=== PATIENT | female | born 1945 | race Caucasian/White ===

== ENCOUNTER 2019-08-12 16:54 | Inpatient (IN) ==
[2019-08-12 18:05] LABS: Hemoglobin 9.6 g/dL (11.5-15.4); Mean Corpuscular Volume 89.1 fL (83.0-100.0)
[2019-08-12 18:07] LABS: Basophils # 0.1 K/mcL (0.0-0.2); Basophils % 1.3 %; Eosinophils # 0.1 K/mcL (0.0-0.6); Eosinophils % 1.1 %; Hematocrit 29.3 % (35.3-44.9); Immature Granulocytes % 5.7 % (0-4); Immature Platelets 9.2 % (1.1-6.1); Lymphocytes # 0.7 K/mcL (0.6-4.6); Lymphocytes % 13.6 %; Mean Corpuscular HGB Conc 32.8 g/dL (31.6-35.5); Mean Corpuscular Hemoglobin 29.2 pg (28.0-33.3); Monocytes # 0.3 K/mcL (0.0-1.3); Monocytes % 5.3 %; Nucleated Red Blood Cells 2.8 /100 WBC (0); Red Blood Count 3.29 M/mcL (3.82-4.97); Red Cell Distribution Width 21.4 % (11.5-14.5); White Blood Count 5.4 K/mcL (4.3-11.1)
[2019-08-12 18:10] LABS: Neutrophils # 3.9 K/mcL (1.6-8.9); Platelet Count 86 K/mcL (140-400)
[2019-08-12 18:22] LABS: Calcium 7.8 mg/dL (8.6-10.3); Potassium 3.6 mEq/L (3.5-5.1)
[2019-08-12 18:28] LABS: Albumin 3.7 g/dL (3.5-5.7); Albumin/Globulin Ratio 1.5 (1.1-2.2); Bilirubin,Direct 0.3 mg/dL (0.0-0.2); Bilirubin,Indirect 1.4 mg/dL (0.0-1.0); Bilirubin,Total 1.7 mg/dL (0.3-1.0); Globulin 2.5 g/dL (2.4-3.5); Total Protein 6.2 g/dL (6.4-8.9); Troponin I 0.04 ng/mL (< 0.04)
[2019-08-12] MEDS ORDERED: *HR* Enoxaparin 60 MG/0.6 ML SYRINGE SQ ONE (18:57)
[2019-08-12 19:10] LABS: Bilirubin,Urine Small (Negative); Blood,Urine Negative (Negative); Clarity,Urine Cloudy (Clear); Color,Urine Dark Yellow (Yellow); Glucose,Urine (UA) 100 mg/dL (Normal); Ketones,Urine Negative (Negative); Leukocyte Esterase,Urine Negative (Negative); Nitrite,Urine Negative (Negative); PH,Urine 5.5 pH Units (5.0-8.0); Protein,Urine >=1000 mg/dL (Neg-Trace); Specific Gravity,Urine 1.028 (1.010-1.025); Urobilinogen,Urine Normal (Normal)
[2019-08-12 19:13] LABS: Bacteria,Urine None Seen per hpf (None-Few); Hyaline Casts,Urine Few per lpf (None-Few); RBC,Urine 0-3 per hpf (0-3); Squamous Epithelial Cell,Urine Many per lpf (None-Few); WBC,Urine 0-3 per hpf (0-3)
[2019-08-12] MEDS ORDERED: Aspirin 81 MG TAB.CHEW PO STA (19:13)
[2019-08-12] MEDS ORDERED: 0.9 % Sodium Chloride 1,000 ML IVC ONE (19:21)
[2019-08-12 19:22] LABS: Amorphous Sediment,Urine Many (Few)
[2019-08-13] MEDS ORDERED: Naloxone 0.4 MG/ML INJ IVP PRN (01:17)
[2019-08-13] MEDS ORDERED: Dextrose Gel 15 GM/37.5 ML TUBE PO PRN ×2 (06:29)
[2019-08-13] MEDS ORDERED: *HR* Dextrose 50 % in Water (Syg) 50 ML SYRINGE IVP PRN (06:29)
[2019-08-13] MEDS ORDERED: D5% in Water 1,000 ML IVC PRN (06:29)
[2019-08-13 06:45] LABS: Mean Corpuscular Hemoglobin 29.1 pg (28.0-33.3)
[2019-08-13 06:47] LABS: Hematocrit 24.9 % (35.3-44.9); Immature Platelets 9.2 % (1.1-6.1); Mean Corpuscular HGB Conc 32.1 g/dL (31.6-35.5); Mean Corpuscular Volume 90.5 fL (83.0-100.0); Red Blood Count 2.75 M/mcL (3.82-4.97); Red Cell Distribution Width 21.4 % (11.5-14.5); White Blood Count 4.2 K/mcL (4.3-11.1)
[2019-08-13 06:59] LABS: Heparin anti-factor XA UFH 0.29 IU/mL (0.30-0.70); INR 1.2; Prothrombin Time 13.7 Seconds (9.4-12.1)
[2019-08-13] MEDS ORDERED: Heparin 25,000 UNIT/250 ML D5W 25,000 UNIT/250 ML IV.SOLN IVC SCH (07:00)
[2019-08-13] MEDS ORDERED: *HR* Heparin 5,000 UNIT/ML VIAL IVP PRN ×2 (07:00)
[2019-08-13] MEDS ORDERED: *HR* Heparin 5,000 UNIT/ML VIAL IVP ONE (07:00)
[2019-08-13 07:03] LABS: Platelet Count 79 K/mcL (140-400)
[2019-08-13 07:05] LABS: Calcium 7.2 mg/dL (8.6-10.3); Potassium 3.2 mEq/L (3.5-5.1)
[2019-08-13] MEDS: Insulin LISPRO 300 UNITS/3 ML VIAL SQ SCH ×4 (08:00→21:05)
[2019-08-13 08:40] LABS: Hematocrit 24.7 % (35.3-44.9); Hemoglobin 7.7 g/dL (11.5-15.4)
[2019-08-13] MEDS ORDERED: Octreotide 50 MCG/ML INJ IVP ONE (09:09)
[2019-08-13] MEDS: Octreotide 400 MCG in 0.9 % Sodium Chloride 100 ML IVC SCH ×2 (13:08→21:04)
[2019-08-13] MEDS: cefTRIAXone 1,000 MG in Water for inj. (sterile) 10 ML IVP SCH (13:08)
[2019-08-13] MEDS: tiZANidine 4 MG TABLET PO SCH ×2 (13:09→21:05)
[2019-08-13] MEDS: Carbidopa/Levodopa 25/100 TABLET PO SCH ×2 (13:10→21:05)
[2019-08-13] MEDS: FLUoxetine 20 MG CAPSULE PO SCH ×2 (13:10→21:05)
[2019-08-13] MEDS ORDERED: 0.9 % Sodium Chloride 500 ML IVC ONE (16:07)
[2019-08-13] MEDS ORDERED: 0.9 % Sodium Chloride 500 ML IVC PRN (16:15)
[2019-08-13 16:47] LABS: Hematocrit 22.3 % (35.3-44.9)
[2019-08-13 17:07] LABS: % Iron Saturation 44 % (15-50); Iron 74 mcg/dL (50-170); Transferrin 120 mg/dL (203-362)
[2019-08-13] MEDS: Pantoprazole 40 MG VIAL IVP SCH (18:08)
[2019-08-13] MEDS ORDERED: 0.9 % Sodium Chloride 250 ML ONE (20:59)
[2019-08-13] MEDS: Mirtazapine 15 MG TABLET PO SCH (21:05)
[2019-08-14 02:02] LABS: Hematocrit 28.3 % (35.3-44.9); Hemoglobin 9.5 g/dL (11.5-15.4); Mean Corpuscular HGB Conc 33.6 g/dL (31.6-35.5); Mean Corpuscular Hemoglobin 29.4 pg (28.0-33.3); Mean Corpuscular Volume 87.6 fL (83.0-100.0); Red Blood Count 3.23 M/mcL (3.82-4.97); Red Cell Distribution Width 18.8 % (11.5-14.5); White Blood Count 5.2 K/mcL (4.3-11.1)
[2019-08-14 02:03] LABS: Basophils # 0.1 K/mcL (0.0-0.2); Basophils % 1.2 %; Eosinophils # 0.1 K/mcL (0.0-0.6); Eosinophils % 1.2 %; Immature Platelets 8.9 % (1.1-6.1); Lymphocytes # 0.7 K/mcL (0.6-4.6); Monocytes # 0.4 K/mcL (0.0-1.3); Nucleated Red Blood Cells 3.3 /100 WBC (0); Platelet Count 75 K/mcL (140-400); Segmented Neutrophils % 70.6 %
[2019-08-14 02:04] LABS: Neutrophils # 3.7 K/mcL (1.6-8.9)
[2019-08-14 02:31] LABS: Anisocytosis 1+ (Not Present); Ovalocytes 2+ (Not Present); Platelet Estimate Decreased (Normal); Tear Drop Cells 3+ (Not Present)
[2019-08-14 05:12] LABS: Basophils % 0.7 %; Eosinophils # 0.1 K/mcL (0.0-0.6); Eosinophils % 1.6 %; Hematocrit 31.1 % (35.3-44.9); Immature Granulocytes % 7.1 % (0-4); Lymphocytes # 0.6 K/mcL (0.6-4.6); Lymphocytes % 13.3 %; Mean Corpuscular HGB Conc 32.2 g/dL (31.6-35.5); Mean Corpuscular Hemoglobin 29.2 pg (28.0-33.3); Mean Corpuscular Volume 90.9 fL (83.0-100.0); Monocytes # 0.3 K/mcL (0.0-1.3); Monocytes % 7.3 %; Neutrophils # 3.1 K/mcL (1.6-8.9); Nucleated Red Blood Cells 3.2 /100 WBC (0); Platelet Count 140 K/mcL (140-400); Red Blood Count 3.42 M/mcL (3.82-4.97); Red Cell Distribution Width 19.1 % (11.5-14.5); White Blood Count 4.4 K/mcL (4.3-11.1)
[2019-08-14 05:25] LABS: INR 1.2; Prothrombin Time 14.1 Seconds (9.4-12.1)
[2019-08-14] MEDS: Octreotide 400 MCG in 0.9 % Sodium Chloride 100 ML IVC SCH ×2 (05:28→19:30)
[2019-08-14 05:43] LABS: Platelet Estimate Decreased (Normal)
[2019-08-14 05:49] LABS: Alanine Aminotransferase < 3 Units/L (7-52); Albumin/Globulin Ratio 1.4 (1.1-2.2); Alkaline Phosphatase 65 Units/L (34-104); Aspartate Amino Transferase 12 Units/L (13-39); BUN/Creatinine Ratio 14 (6-26); Bilirubin,Total 1.7 mg/dL (0.3-1.0); Blood Urea Nitrogen 20 mg/dL (8-23); Calcium 6.7 mg/dL (8.6-10.3); Carbon Dioxide 21 mEq/L (23-29); Chloride 109 mEq/L (98-107); Globulin 2.2 g/dL (2.4-3.5); Glucose 182 mg/dL (70-105); Magnesium 1.8 mg/dL (1.6-2.6); Osmolality,Calculated 299 (280-300); Potassium 3.8 mEq/L (3.5-5.1); Sodium 141 mEq/L (136-145); Total Protein 5.2 g/dL (6.4-8.9); eGFR For African Americans 42 (> 60); eGFR For Non-African Americans 35 (> 60)
[2019-08-14] MEDS: Pantoprazole 40 MG VIAL IVP SCH ×2 (06:09→17:57)
[2019-08-14] MEDS ORDERED: Calcium Chloride 1,000 MG in 0.9 % Sodium Chloride 100 ML IVPB ONE (07:26)
[2019-08-14] MEDS: 0.9 % Sodium Chloride 1,000 ML IVC SCH ×2 (08:56→22:06)
[2019-08-14] MEDS: FLUoxetine 20 MG CAPSULE PO SCH ×2 (08:56→20:08)
[2019-08-14] MEDS: tiZANidine 4 MG TABLET PO SCH ×2 (08:57→20:08)
[2019-08-14] MEDS: Carbidopa/Levodopa 25/100 TABLET PO SCH ×2 (08:57→20:08)
[2019-08-14] MEDS: cefTRIAXone 1,000 MG in Water for inj. (sterile) 10 ML IVP SCH (08:58)
[2019-08-14] MEDS: Insulin LISPRO 300 UNITS/3 ML VIAL SQ SCH ×4 (09:06→20:05)
[2019-08-14] MEDS ORDERED: Calcium Gluconate 1gm/50mL 1 GM/50 ML BAG IVPB ONE (09:28)
[2019-08-14] MEDS ORDERED: *HR* Metoprolol 5 MG/5 ML VIAL IVP PRN (11:20)
[2019-08-14 13:32] LABS: Hematocrit 30.5 % (35.3-44.9); Hemoglobin 9.8 g/dL (11.5-15.4)
[2019-08-14] MEDS: Mirtazapine 15 MG TABLET PO SCH (20:08)
[2019-08-15] MEDS ORDERED: *HR* Metoprolol 5 MG/5 ML VIAL IVP ONE (01:55)
[2019-08-15 05:20] LABS: Red Cell Distribution Width 19.5 % (11.5-14.5); White Blood Count 5.9 K/mcL (4.3-11.1)
[2019-08-15 05:22] LABS: Basophils # 0.1 K/mcL (0.0-0.2); Basophils % 1.4 %; Eosinophils # 0.1 K/mcL (0.0-0.6); Eosinophils % 1.7 %; Hematocrit 30.6 % (35.3-44.9); Hemoglobin 10.2 g/dL (11.5-15.4); Immature Granulocytes % 5.1 % (0-4); Immature Platelets 8.6 % (1.1-6.1); Lymphocytes # 0.7 K/mcL (0.6-4.6); Lymphocytes % 11.1 %; Mean Corpuscular HGB Conc 33.3 g/dL (31.6-35.5); Mean Corpuscular Hemoglobin 29.6 pg (28.0-33.3); Mean Corpuscular Volume 88.7 fL (83.0-100.0); Monocytes # 0.3 K/mcL (0.0-1.3); Monocytes % 5.6 %; Neutrophils # 4.4 K/mcL (1.6-8.9); Nucleated Red Blood Cells 1.9 /100 WBC (0); Red Blood Count 3.45 M/mcL (3.82-4.97); Segmented Neutrophils % 75.1 %
[2019-08-15 05:23] LABS: Platelet Count 71 K/mcL (140-400)
[2019-08-15 05:40] LABS: Calcium 6.6 mg/dL (8.6-10.3); Magnesium 1.7 mg/dL (1.6-2.6)
[2019-08-15 05:46] LABS: Anisocytosis 2+ (Not Present); Ovalocytes 2+ (Not Present); Platelet Estimate Decreased (Normal); Poikilocytosis 2+ (Not Present); Tear Drop Cells 2+ (Not Present)
[2019-08-15] MEDS: Pantoprazole 40 MG VIAL IVP SCH (06:20)
[2019-08-15] MEDS: Octreotide 400 MCG in 0.9 % Sodium Chloride 100 ML IVC SCH (07:40)
[2019-08-15] MEDS ORDERED: 0.9 % Sodium Chloride 500 ML IVC SCH (08:00)
[2019-08-15] MEDS ORDERED: Lidocaine -MPF 2% 2 ML VIAL ONE (08:06)
[2019-08-15] MEDS ORDERED: *HR* Propofol 200 MG/20 ML VIAL IVP ONE (08:07)
[2019-08-15] MEDS: Insulin LISPRO 300 UNITS/3 ML VIAL SQ SCH ×4 (08:48→19:59)
[2019-08-15] MEDS: cefTRIAXone 1,000 MG in Water for inj. (sterile) 10 ML IVP SCH (10:04)
[2019-08-15] MEDS: tiZANidine 4 MG TABLET PO SCH ×2 (10:04→20:10)
[2019-08-15] MEDS: Carbidopa/Levodopa 25/100 TABLET PO SCH ×2 (10:04→20:09)
[2019-08-15] MEDS: FLUoxetine 20 MG CAPSULE PO SCH ×2 (10:05→20:09)
[2019-08-15] MEDS: Aspirin Enteric Coated 81 MG Tablet PO SCH (13:44)
[2019-08-15] MEDS: Mirtazapine 15 MG TABLET PO SCH (20:10)
[2019-08-16 07:50] LABS: Mean Corpuscular Volume 90.3 fL (83.0-100.0)
[2019-08-16 07:52] LABS: Hematocrit 33.6 % (35.3-44.9); Hemoglobin 10.8 g/dL (11.5-15.4); Immature Platelets 9.9 % (1.1-6.1); Mean Corpuscular HGB Conc 32.1 g/dL (31.6-35.5); Red Blood Count 3.72 M/mcL (3.82-4.97); Red Cell Distribution Width 19.5 % (11.5-14.5)
[2019-08-16 07:56] LABS: Platelet Count 68 K/mcL (140-400)
[2019-08-16 08:10] LABS: Calcium 6.7 mg/dL (8.6-10.3); Potassium 4.1 mEq/L (3.5-5.1)
[2019-08-16] MEDS: Insulin LISPRO 300 UNITS/3 ML VIAL SQ SCH ×4 (08:46→21:19)
[2019-08-16] MEDS: FLUoxetine 20 MG CAPSULE PO SCH ×2 (08:47→21:18)
[2019-08-16] MEDS: Aspirin Enteric Coated 81 MG Tablet PO SCH (08:47)
[2019-08-16] MEDS: Carbidopa/Levodopa 25/100 TABLET PO SCH ×2 (08:47→21:18)
[2019-08-16] MEDS: tiZANidine 4 MG TABLET PO SCH (08:47)
[2019-08-16] MEDS ORDERED: Ringers Solution, Lactated 1,000 ML IVC ONE (11:01)
[2019-08-16 15:44] LABS: Bilirubin,Urine Negative (Negative); Blood,Urine Negative (Negative); Clarity,Urine Clear (Clear); Color,Urine Yellow (Yellow); Glucose,Urine (UA) Normal (Normal); Ketones,Urine Trace mg/dL (Negative); Leukocyte Esterase,Urine Negative (Negative); Nitrite,Urine Negative (Negative); PH,Urine 5.5 pH Units (5.0-8.0); Protein,Urine 100 mg/dL (Neg-Trace); Specific Gravity,Urine 1.022 (1.010-1.025); Urobilinogen,Urine Normal (Normal)
[2019-08-16 15:47] LABS: Bacteria,Urine None Seen per hpf (None-Few); Hyaline Casts,Urine Few per lpf (None-Few); RBC,Urine 0-3 per hpf (0-3); Squamous Epithelial Cell,Urine Many per lpf (None-Few); WBC,Urine 15-30 per hpf (0-3)
[2019-08-16] MEDS ORDERED: *HR* Rivaroxaban 15 MG TABLET PO SCH (17:00)
[2019-08-16] MEDS ORDERED: *HR* Rivaroxaban 10 MG TABLET PO SCH (17:00)
[2019-08-16] MEDS ORDERED: 0.9 % Sodium Chloride 500 ML IVC ONE (17:17)
[2019-08-16] MEDS: Mirtazapine 15 MG TABLET PO SCH (21:19)
[2019-08-17 02:36] LABS: Red Blood Count 3.51 M/mcL (3.82-4.97); Red Cell Distribution Width 19.1 % (11.5-14.5)
[2019-08-17 02:38] LABS: Hematocrit 31.5 % (35.3-44.9); Hemoglobin 10.2 g/dL (11.5-15.4); Immature Platelets 8.7 % (1.1-6.1); Mean Corpuscular HGB Conc 32.4 g/dL (31.6-35.5); Mean Corpuscular Hemoglobin 29.1 pg (28.0-33.3); Mean Corpuscular Volume 89.7 fL (83.0-100.0); White Blood Count 5.7 K/mcL (4.3-11.1)
[2019-08-17 02:42] LABS: Platelet Count 70 K/mcL (140-400)
[2019-08-17 02:55] LABS: Calcium 6.7 mg/dL (8.6-10.3); Potassium 3.9 mEq/L (3.5-5.1)
[2019-08-17 07:28] VITALS: BP 175/73
[2019-08-17] MEDS: Insulin LISPRO 300 UNITS/3 ML VIAL SQ SCH ×2 (07:44→12:00)
[2019-08-17] MEDS: Aspirin Enteric Coated 81 MG Tablet PO SCH (09:11)
[2019-08-17] MEDS: Carbidopa/Levodopa 25/100 TABLET PO SCH (09:11)
[2019-08-17] MEDS: FLUoxetine 20 MG CAPSULE PO SCH (09:12)
[2019-08-17] MEDS ORDERED: NIFEdipine XL (24 HR) 60 MG TAB.ER.24 PO ONE (15:19)
[2019-08-17] MEDS ORDERED: NIFEdipine XL (24 HR) 30 MG TAB.ER.24 PO ONE (15:19)
== END 2019-08-17 17:21 | disposition other institution (70) | DRG 64 ==
LOC: EMEROOARM 16:54 → 2NENU 16:54 → SUATTDRO 20:10 → 2NENU 21:09 → SUATTDRO 08-13 14:32
PROVIDERS: ADMIT Family Medicine; ATTEND Internal Medicine

== ENCOUNTER 2019-09-15 18:34 | Observation (INO) ==
[2019-09-15] MEDS ORDERED: Isovue-370 500 ML BOTTLE IVP ONE (19:10)
[2019-09-15 19:45] LABS: Basophils # 0.1 K/mcL (0.0-0.2); Basophils % 0.8 %; Eosinophils % 0.3 %; Hemoglobin 9.9 g/dL (11.5-15.4); Immature Granulocytes % 1.7 % (0-4); Lymphocytes # 0.6 K/mcL (0.6-4.6); Lymphocytes % 8.6 %; Mean Corpuscular HGB Conc 30.9 g/dL (31.6-35.5); Mean Corpuscular Hemoglobin 31.1 pg (28.0-33.3); Mean Corpuscular Volume 100.6 fL (83.0-100.0); Monocytes # 0.3 K/mcL (0.0-1.3); Neutrophils # 5.5 K/mcL (1.6-8.9); Nucleated Red Blood Cells 1.7 /100 WBC (0); Platelet Count 132 K/mcL (140-400); Red Blood Count 3.18 M/mcL (3.82-4.97); Red Cell Distribution Width 23.9 % (11.5-14.5); Segmented Neutrophils % 84.6 %; White Blood Count 6.5 K/mcL (4.3-11.1)
[2019-09-15] MEDS ORDERED: Ipratropium/Albuterol Neb 3 ML IH ONE (20:09)
[2019-09-15 20:12] LABS: Calcium 7.3 mg/dL (8.6-10.3); Potassium 5.1 mEq/L (3.5-5.1)
[2019-09-15 20:21] LABS: Anisocytosis 1+ (Not Present); Microcytosis Present (Not Present); Platelet Estimate Normal (Normal)
[2019-09-15 20:22] LABS: Ovalocytes 1+ (Not Present); Poikilocytosis 2+ (Not Present); Polychromasia 1+ (Not Present); Tear Drop Cells 1+ (Not Present)
[2019-09-15 20:28] LABS: Alanine Aminotransferase 3 Units/L (7-52); Albumin 4.2 g/dL (3.5-5.7); Albumin/Globulin Ratio 1.8 (1.1-2.2); Alkaline Phosphatase 76 Units/L (34-104); Aspartate Amino Transferase 23 Units/L (13-39); Bilirubin,Direct 0.1 mg/dL (0.0-0.2); Bilirubin,Indirect 1.1 mg/dL (0.0-1.0); Bilirubin,Total 1.2 mg/dL (0.3-1.0); Globulin 2.3 g/dL (2.4-3.5); Magnesium 2.6 mg/dL (1.6-2.6); Total Protein 6.5 g/dL (6.4-8.9); Troponin I < 0.03 ng/mL (< 0.04)
[2019-09-15] MEDS ORDERED: 0.9 % Sodium Chloride 1,000 ML IVC STA (20:30)
[2019-09-15] MEDS ORDERED: methylPREDNISolone 125 MG/2 ML VIAL IVP ONE (20:41)
[2019-09-15] MEDS ORDERED: *HR* Heparin 5,000 UNIT/ML VIAL IVP PRN ×2 (21:54)
[2019-09-15] MEDS ORDERED: *HR* Heparin 5,000 UNIT/ML VIAL IVP ONE (21:54)
[2019-09-15] MEDS ORDERED: Heparin 25,000 UNIT/250 ML D5W 25,000 UNIT/250 ML IV.SOLN IVC SCH ×2 (22:00→23:15)
[2019-09-15 22:25] LABS: INR 1.4
[2019-09-15] MEDS ORDERED: NIFEdipine XL (24 HR) 30 MG TAB.ER.24 PO SCH (23:00)
[2019-09-15] MEDS ORDERED: Acetaminophen 325 MG TABLET PO PRN (23:01)
[2019-09-15] MEDS ORDERED: Ondansetron 4 MG/2 ML VIAL IVP PRN (23:01)
[2019-09-16] MEDS: Calcium Gluconate 1gm/50mL 1 GM/50 ML BAG IVPB SCH ×2 (01:22→02:19)
[2019-09-16 04:55] LABS: Mean Corpuscular Volume 101.1 fL (83.0-100.0)
[2019-09-16 04:56] LABS: Hematocrit 26.9 % (35.3-44.9); Hemoglobin 8.3 g/dL (11.5-15.4); Immature Platelets 9.8 % (1.1-6.1); Mean Corpuscular HGB Conc 30.9 g/dL (31.6-35.5); Mean Corpuscular Hemoglobin 31.2 pg (28.0-33.3); Red Blood Count 2.66 M/mcL (3.82-4.97); Red Cell Distribution Width 23.2 % (11.5-14.5)
[2019-09-16 05:01] LABS: Platelet Count 88 K/mcL (140-400)
[2019-09-16 05:12] LABS: Calcium 7.3 mg/dL (8.6-10.3); Magnesium 2.4 mg/dL (1.6-2.6)
[2019-09-16] MEDS: Aspirin Enteric Coated 81 MG Tablet PO SCH (10:41)
[2019-09-16] MEDS: FLUoxetine 20 MG CAPSULE PO SCH ×2 (10:42→21:17)
[2019-09-16] MEDS: Cholecalciferol (D-3) 1,000 UNIT (25MCG) TABLET PO SCH (10:42)
[2019-09-16] MEDS: Carbidopa/Levodopa 25/100 TABLET PO SCH ×2 (10:42→21:17)
[2019-09-16] MEDS: NIFEdipine XL (24 HR) 30 MG TAB.ER.24 PO SCH (10:44)
[2019-09-16] MEDS ORDERED: *HR* Dextrose 50 % in Water (Syg) 50 ML SYRINGE IVP PRN (11:18)
[2019-09-16] MEDS ORDERED: D5% in Water 1,000 ML IVC PRN (11:18)
[2019-09-16] MEDS ORDERED: Dextrose Gel 15 GM/37.5 ML TUBE PO PRN ×2 (11:18)
[2019-09-16] MEDS: Insulin LISPRO 300 UNITS/3 ML VIAL SQ SCH ×3 (13:17→21:18)
[2019-09-16] MEDS ORDERED: Insulin DETEMIR 100 UNIT/ML X5UNITS SQ SCH (21:00)
[2019-09-16] MEDS: Metoprolol XL (24 HR) Succ 50 MG TAB.ER.24H PO SCH (21:17)
[2019-09-16] MEDS: *HR* Rivaroxaban 15 MG TABLET PO SCH (21:17)
[2019-09-16] MEDS: Mirtazapine 15 MG TABLET PO SCH (21:17)
[2019-09-17 01:52] LABS: Hematocrit 27.3 % (35.3-44.9); Red Cell Distribution Width 23.1 % (11.5-14.5)
[2019-09-17 01:54] LABS: Hemoglobin 8.5 g/dL (11.5-15.4); Immature Platelets 10.1 % (1.1-6.1); Mean Corpuscular HGB Conc 31.1 g/dL (31.6-35.5); Mean Corpuscular Hemoglobin 31.5 pg (28.0-33.3); Mean Corpuscular Volume 101.1 fL (83.0-100.0); White Blood Count 6.1 K/mcL (4.3-11.1)
[2019-09-17 01:56] LABS: INR 1.3; Platelet Count 99 K/mcL (140-400); Prothrombin Time 14.2 Seconds (9.4-12.1)
[2019-09-17 02:15] LABS: Calcium 7.3 mg/dL (8.6-10.3); Potassium 4.3 mEq/L (3.5-5.1)
[2019-09-17] MEDS: Insulin LISPRO 300 UNITS/3 ML VIAL SQ SCH ×4 (09:16→21:40)
[2019-09-17] MEDS: Cholecalciferol (D-3) 1,000 UNIT (25MCG) TABLET PO SCH (09:18)
[2019-09-17] MEDS: NIFEdipine XL (24 HR) 30 MG TAB.ER.24 PO SCH (09:18)
[2019-09-17] MEDS: FLUoxetine 20 MG CAPSULE PO SCH ×2 (09:18→21:40)
[2019-09-17] MEDS: Aspirin Enteric Coated 81 MG Tablet PO SCH (09:19)
[2019-09-17] MEDS: Carbidopa/Levodopa 25/100 TABLET PO SCH ×2 (09:19→21:40)
[2019-09-17 12:01] LABS: Bilirubin,Urine Negative (Negative); Blood,Urine Negative (Negative); Clarity,Urine Clear (Clear); Color,Urine Yellow (Yellow); Glucose,Urine (UA) Normal (Normal); Ketones,Urine Negative (Negative); Leukocyte Esterase,Urine Negative (Negative); Nitrite,Urine Negative (Negative); PH,Urine 5.5 pH Units (5.0-8.0); Protein,Urine 30 mg/dL (Neg-Trace); Specific Gravity,Urine 1.021 (1.010-1.025); Urobilinogen,Urine Normal (Normal)
[2019-09-17 12:03] LABS: Bacteria,Urine None Seen per hpf (None-Few); Hyaline Casts,Urine None Seen per lpf (None-Few); Squamous Epithelial Cell,Urine Moderate per lpf (None-Few); WBC,Urine 0-3 per hpf (0-3)
[2019-09-17 12:14] LABS: Protein/Creatinine Ratio,Urine 0.35 mg/mg (0.00-0.20); Sodium, Urine 23.6 mEq/L
[2019-09-17] MEDS ORDERED: Insulin DETEMIR 100 UNIT/ML X5UNITS SQ SCH (21:00)
[2019-09-17] MEDS: Metoprolol XL (24 HR) Succ 50 MG TAB.ER.24H PO SCH (21:39)
[2019-09-17] MEDS: Mirtazapine 15 MG TABLET PO SCH (21:40)
[2019-09-17] MEDS: *HR* Rivaroxaban 15 MG TABLET PO SCH (21:40)
[2019-09-18 05:09] LABS: Basophils % 0.5 %; Eosinophils # 0.1 K/mcL (0.0-0.6); Eosinophils % 0.7 %; Hemoglobin 9.6 g/dL (11.5-15.4); Immature Granulocytes % 1.5 % (0-4); Lymphocytes # 1.2 K/mcL (0.6-4.6); Lymphocytes % 14.3 %; Mean Corpuscular Hemoglobin 31.2 pg (28.0-33.3); Mean Corpuscular Volume 103.9 fL (83.0-100.0); Mean Platelet Volume 13.2 fL (9.4-12.4); Monocytes # 0.4 K/mcL (0.0-1.3); Monocytes % 4.8 %; Nucleated Red Blood Cells 0.6 /100 WBC (0); Platelet Count 179 K/mcL (140-400); Red Blood Count 3.08 M/mcL (3.82-4.97); Red Cell Distribution Width 23.3 % (11.5-14.5); Segmented Neutrophils % 78.2 %; White Blood Count 8.5 K/mcL (4.3-11.1)
[2019-09-18 05:18] LABS: Neutrophils # 6.7 K/mcL (1.6-8.9)
[2019-09-18 05:28] LABS: Calcium 7.6 mg/dL (8.6-10.3); Magnesium 2.7 mg/dL (1.6-2.6); Phosphorous 6.6 mg/dL (2.7-4.5); Potassium 4.4 mEq/L (3.5-5.1)
[2019-09-18 06:44] LABS: Anisocytosis 2+ (Not Present); Ovalocytes 2+ (Not Present); Platelet Estimate Decreased (Normal); Poikilocytosis 2+ (Not Present); Tear Drop Cells 1+ (Not Present)
[2019-09-18] MEDS: Insulin LISPRO 300 UNITS/3 ML VIAL SQ SCH ×4 (08:12→20:32)
[2019-09-18] MEDS: NIFEdipine XL (24 HR) 30 MG TAB.ER.24 PO SCH (08:16)
[2019-09-18] MEDS: Cholecalciferol (D-3) 1,000 UNIT (25MCG) TABLET PO SCH (08:17)
[2019-09-18] MEDS: Aspirin Enteric Coated 81 MG Tablet PO SCH (08:17)
[2019-09-18] MEDS: FLUoxetine 20 MG CAPSULE PO SCH ×2 (08:17→20:16)
[2019-09-18] MEDS: Carbidopa/Levodopa 25/100 TABLET PO SCH ×2 (08:17→20:16)
[2019-09-18 11:22] LABS: VBG Ionized Calcium 1.09 mmol/L (1.15-1.35)
[2019-09-18 11:37] LABS: % Iron Saturation 28 % (15-50); Iron 71 mcg/dL (50-170); Transferrin 179 mg/dL (203-362)
[2019-09-18] MEDS: Albumin 25% 12.5gm/50mL 12.5 GM/50 ML IV.SOLN IVPB SCH (17:12)
[2019-09-18] MEDS: Mirtazapine 15 MG TABLET PO SCH (20:15)
[2019-09-18] MEDS: *HR* Rivaroxaban 15 MG TABLET PO SCH (20:16)
[2019-09-18] MEDS: Metoprolol XL (24 HR) Succ 50 MG TAB.ER.24H PO SCH (20:16)
[2019-09-19] MEDS: Albumin 25% 12.5gm/50mL 12.5 GM/50 ML IV.SOLN IVPB SCH ×3 (00:51→16:19)
[2019-09-19 01:57] LABS: Basophils % 0.5 %; Eosinophils % 0.8 %; Hematocrit 26.1 % (35.3-44.9); Immature Granulocytes % 1.5 % (0-4); Lymphocytes # 0.6 K/mcL (0.6-4.6); Lymphocytes % 15.2 %; Mean Corpuscular HGB Conc 30.3 g/dL (31.6-35.5); Mean Corpuscular Hemoglobin 31.6 pg (28.0-33.3); Mean Corpuscular Volume 104.4 fL (83.0-100.0); Mean Platelet Volume 13.3 fL (9.4-12.4); Monocytes # 0.2 K/mcL (0.0-1.3); Monocytes % 4.1 %; Neutrophils # 3.1 K/mcL (1.6-8.9); Platelet Count 125 K/mcL (140-400); Red Cell Distribution Width 22.1 % (11.5-14.5); Segmented Neutrophils % 77.9 %
[2019-09-19 02:10] LABS: Hemoglobin 7.9 g/dL (11.5-15.4)
[2019-09-19 02:14] LABS: Magnesium 2.6 mg/dL (1.6-2.6); Phosphorous 6.4 mg/dL (2.7-4.5)
[2019-09-19 02:15] LABS: Calcium 7.9 mg/dL (8.6-10.3); Potassium 4.3 mEq/L (3.5-5.1)
[2019-09-19] MEDS: Carbidopa/Levodopa 25/100 TABLET PO SCH (08:58)
[2019-09-19] MEDS: Cholecalciferol (D-3) 1,000 UNIT (25MCG) TABLET PO SCH (08:58)
[2019-09-19] MEDS: Aspirin Enteric Coated 81 MG Tablet PO SCH (08:58)
[2019-09-19] MEDS: FLUoxetine 20 MG CAPSULE PO SCH (08:59)
[2019-09-19] MEDS: Insulin LISPRO 300 UNITS/3 ML VIAL SQ SCH ×3 (08:59→16:19)
[2019-09-19] MEDS: NIFEdipine XL (24 HR) 30 MG TAB.ER.24 PO SCH (08:59)
[2019-09-19 09:54] LABS: Hematocrit 28.3 % (35.3-44.9); Hemoglobin 8.8 g/dL (11.5-15.4)
[2019-09-19 16:42] VITALS: BP 114/64
== END 2019-09-19 17:45 | disposition home or self-care (01) ==
LOC: 2NENU 18:34 → EMEROOARM 18:34 → SUATTDRO 22:52 → 2NENU 23:30
PROVIDERS: ADMIT Internal Medicine; ATTEND Student in an Organized Health Care Education/Training Program

== ENCOUNTER 2019-10-04 17:47 | Inpatient (IN) ==
[2019-10-04] MEDS ORDERED: Naloxone 0.4 MG/ML INJ IVP PRN (21:55)
[2019-10-04] MEDS ORDERED: Dextrose Gel 15 GM/37.5 ML TUBE PO PRN ×2 (21:57)
[2019-10-04] MEDS ORDERED: D5% in Water 1,000 ML IVC PRN (21:57)
[2019-10-04] MEDS ORDERED: *HR* Dextrose 50 % in Water (Syg) 50 ML SYRINGE IVP PRN (21:57)
[2019-10-04] MEDS: Insulin LISPRO 300 UNITS/3 ML VIAL SQ SCH (22:07)
[2019-10-05] MEDS: Insulin LISPRO 300 UNITS/3 ML VIAL SQ SCH ×3 (08:17→18:19)
[2019-10-05 08:48] LABS: Basophils % 0.6 %; Hemoglobin 8.8 g/dL (11.5-15.4); Mean Corpuscular Volume 99.6 fL (83.0-100.0); Nucleated Red Blood Cells 0.6 /100 WBC (0)
[2019-10-05 08:50] LABS: Eosinophils % 1.3 %; Hematocrit 27.5 % (35.3-44.9); Immature Granulocytes % 1.3 % (0-4); Immature Platelets 8.3 % (1.1-6.1); Lymphocytes # 0.3 K/mcL (0.6-4.6); Lymphocytes % 10.7 %; Mean Corpuscular Hemoglobin 31.9 pg (28.0-33.3); Monocytes # 0.2 K/mcL (0.0-1.3); Monocytes % 5.7 %; Neutrophils # 2.6 K/mcL (1.6-8.9); Red Blood Count 2.76 M/mcL (3.82-4.97); Red Cell Distribution Width 18.3 % (11.5-14.5); Segmented Neutrophils % 80.4 %; White Blood Count 3.2 K/mcL (4.3-11.1)
[2019-10-05 08:52] LABS: Platelet Count 72 K/mcL (140-400)
[2019-10-05 08:55] LABS: INR 1.3; Prothrombin Time 14.9 Seconds (9.4-12.1)
[2019-10-05 08:57] LABS: Activated Partial Thrombo Time 32.1 Seconds (26.0-36.0)
[2019-10-05 09:08] LABS: Albumin 3.6 g/dL (3.5-5.7); Albumin/Globulin Ratio 1.9 (1.1-2.2); Bilirubin,Total 0.7 mg/dL (0.3-1.0); Calcium 7.4 mg/dL (8.6-10.3); Globulin 1.9 g/dL (2.4-3.5); Magnesium 2.2 mg/dL (1.6-2.6); Phosphorous 4.6 mg/dL (2.7-4.5); Potassium 3.9 mEq/L (3.5-5.1); Total Protein 5.5 g/dL (6.4-8.9)
[2019-10-05 15:17] LABS: RBC,Peritoneal Fluid < 0.002 M/mcL
[2019-10-05] MEDS ORDERED: hydrALAZINE 25 MG TABLET PO SCH (16:00)
[2019-10-05] MEDS: NIFEdipine XL (24 HR) 30 MG TAB.ER.24 PO SCH (16:04)
[2019-10-05] MEDS: Albumin 25% 25gram/100mL 25 GM/100 ML IV.SOLN IVC SCH ×2 (16:04→18:15)
[2019-10-05 16:06] LABS: Appearance of Peritoneal Fl CLEAR (Clear)
[2019-10-05] MEDS ORDERED: Insulin DETEMIR 100 UNIT/ML X5UNITS SQ SCH (21:00)
[2019-10-05] MEDS: Metoprolol XL (24 HR) Succ 50 MG TAB.ER.24H PO SCH (22:33)
[2019-10-06 02:36] LABS: Hematocrit 35.4 % (35.3-44.9); Hemoglobin 11.4 g/dL (11.5-15.4); Mean Corpuscular HGB Conc 32.2 g/dL (31.6-35.5); Mean Corpuscular Hemoglobin 32.1 pg (28.0-33.3); Mean Corpuscular Volume 99.7 fL (83.0-100.0); Platelet Count 135 K/mcL (140-400); Red Blood Count 3.55 M/mcL (3.82-4.97); Red Cell Distribution Width 18.3 % (11.5-14.5); White Blood Count 7.4 K/mcL (4.3-11.1)
[2019-10-06 02:39] LABS: Calcium 7.6 mg/dL (8.6-10.3); Magnesium 2.2 mg/dL (1.6-2.6); Potassium 3.6 mEq/L (3.5-5.1)
[2019-10-06] MEDS: Insulin LISPRO 300 UNITS/3 ML VIAL SQ SCH ×3 (08:25→16:54)
[2019-10-06] MEDS: Furosemide 20 MG TABLET PO SCH (08:27)
[2019-10-06] MEDS: NIFEdipine XL (24 HR) 30 MG TAB.ER.24 PO SCH (08:27)
[2019-10-06] MEDS ORDERED: NON-FORMULARY MEDICATION 1 EACH EACH (Nifedipine [Nifedipine Er] 90 MG) PO SCH (09:00)
[2019-10-06] MEDS: *HR* Rivaroxaban 15 MG TABLET PO SCH (17:28)
[2019-10-06] MEDS: Aspirin Enteric Coated 81 MG Tablet PO SCH (20:47)
[2019-10-06] MEDS: Carbidopa/Levodopa 25/100 TABLET PO SCH (20:47)
[2019-10-06] MEDS: Metoprolol XL (24 HR) Succ 50 MG TAB.ER.24H PO SCH (20:47)
[2019-10-06] MEDS: FLUoxetine 20 MG CAPSULE PO SCH (20:47)
[2019-10-06] MEDS: Insulin DETEMIR 100 UNIT/ML X5UNITS SQ SCH (20:48)
[2019-10-07 04:25] LABS: Hematocrit 30.2 % (35.3-44.9); Hemoglobin 9.5 g/dL (11.5-15.4); Immature Platelets 8.8 % (1.1-6.1); Mean Corpuscular HGB Conc 31.5 g/dL (31.6-35.5); Mean Corpuscular Hemoglobin 31.4 pg (28.0-33.3); Mean Corpuscular Volume 99.7 fL (83.0-100.0); Red Blood Count 3.03 M/mcL (3.82-4.97); Red Cell Distribution Width 18.1 % (11.5-14.5); White Blood Count 4.1 K/mcL (4.3-11.1)
[2019-10-07 04:27] LABS: Platelet Count 83 K/mcL (140-400)
[2019-10-07 04:44] LABS: Calcium 6.8 mg/dL (8.6-10.3); Potassium 3.8 mEq/L (3.5-5.1)
[2019-10-07] MEDS: Insulin LISPRO 300 UNITS/3 ML VIAL SQ SCH ×3 (07:56→17:15)
[2019-10-07] MEDS: NIFEdipine XL (24 HR) 60 MG TAB.ER.24 PO SCH (09:24)
[2019-10-07] MEDS: Cholecalciferol (D-3) 1,000 UNIT (25MCG) TABLET PO SCH (09:24)
[2019-10-07] MEDS: Magnesium Oxide 400 MG TABLET PO SCH (09:24)
[2019-10-07] MEDS: FLUoxetine 20 MG CAPSULE PO SCH ×2 (09:25→21:07)
[2019-10-07] MEDS: Furosemide 20 MG TABLET PO SCH (09:25)
[2019-10-07] MEDS: Carbidopa/Levodopa 25/100 TABLET PO SCH ×3 (09:25→21:06)
[2019-10-07] MEDS: *HR* Rivaroxaban 15 MG TABLET PO SCH (17:15)
[2019-10-07] MEDS: Aspirin Enteric Coated 81 MG Tablet PO SCH (21:06)
[2019-10-07] MEDS: Metoprolol XL (24 HR) Succ 50 MG TAB.ER.24H PO SCH (21:06)
[2019-10-07] MEDS: Insulin DETEMIR 100 UNIT/ML X5UNITS SQ SCH (21:07)
[2019-10-08 01:02] LABS: Mean Corpuscular Volume 99.3 fL (83.0-100.0)
[2019-10-08 01:04] LABS: Hematocrit 27.9 % (35.3-44.9); Hemoglobin 8.9 g/dL (11.5-15.4); Immature Platelets 8.8 % (1.1-6.1); Mean Corpuscular HGB Conc 31.9 g/dL (31.6-35.5); Mean Corpuscular Hemoglobin 31.7 pg (28.0-33.3); Red Blood Count 2.81 M/mcL (3.82-4.97); Red Cell Distribution Width 17.5 % (11.5-14.5); White Blood Count 3.7 K/mcL (4.3-11.1)
[2019-10-08 01:09] LABS: Platelet Count 74 K/mcL (140-400)
[2019-10-08 01:28] LABS: Calcium 6.9 mg/dL (8.6-10.3); Potassium 3.9 mEq/L (3.5-5.1)
[2019-10-08 07:32] VITALS: BP 156/64
[2019-10-08] MEDS: Insulin LISPRO 300 UNITS/3 ML VIAL SQ SCH ×2 (07:39→12:23)
[2019-10-08] MEDS: NIFEdipine XL (24 HR) 60 MG TAB.ER.24 PO SCH (07:45)
[2019-10-08] MEDS: Magnesium Oxide 400 MG TABLET PO SCH (07:45)
[2019-10-08] MEDS: Furosemide 20 MG TABLET PO SCH (07:45)
[2019-10-08] MEDS: Carbidopa/Levodopa 25/100 TABLET PO SCH (07:46)
[2019-10-08] MEDS: FLUoxetine 20 MG CAPSULE PO SCH (07:46)
[2019-10-08] MEDS: Cholecalciferol (D-3) 1,000 UNIT (25MCG) TABLET PO SCH (07:46)
== END 2019-10-08 13:22 | DRG 432 ==
LOC: 3ANU → SUATTDRO 10-06 17:30
PROVIDERS: ADMIT Family Medicine; ATTEND Internal Medicine

== ENCOUNTER 2019-11-06 06:22 | Inpatient (IN) ==
[2019-11-06] MEDS ORDERED: *HR* Labetalol 20 MG/4 ML SYRINGE IVP PRN ×2 (07:00→11:49)
[2019-11-06] MEDS ORDERED: Ringers Solution, Lactated 1,000 ML IVC SCH (07:00)
[2019-11-06] MEDS ORDERED: Ondansetron 4 MG/2 ML VIAL IVP ONE (07:00)
[2019-11-06] MEDS ORDERED: *HR* HYDROmorphone (PF) 1 MG/ML SYRINGE IVP PRN (07:00)
[2019-11-06] MEDS ORDERED: *HR* OxyCODONE Immed Rel 5 MG TABLET PO PRN ×2 (07:00→11:49)
[2019-11-06] MEDS ORDERED: Heparin 1,000 UNITS/500 mL 500 ML ONE ×2 (07:09→07:17)
[2019-11-06] MEDS ORDERED: Lidocaine HCL 4 ML Topical Solution (Laryng-O-Jet Kit Sterile Pak) TP ONE (07:11)
[2019-11-06] MEDS ORDERED: *HR* Propofol 200 MG/20 ML VIAL IVP ONE (07:11)
[2019-11-06] MEDS ORDERED: Ondansetron 4 MG/2 ML VIAL ONE (07:11)
[2019-11-06] MEDS ORDERED: *HR* FentaNYL (PF) 100 MCG/2 ML VIAL ONE (07:11)
[2019-11-06] MEDS ORDERED: *HR* Succinylcholine 200 MG/10 ML VIAL IVP ONE (07:11)
[2019-11-06] MEDS ORDERED: Lidocaine -MPF 2% 2 ML VIAL ONE ×2 (07:11→07:18)
[2019-11-06] MEDS ORDERED: Dexamethasone 4 MG/ML VIAL ONE (07:11)
[2019-11-06] MEDS ORDERED: Lidocaine 1% 20 ML MDV ONE (07:17)
[2019-11-06] MEDS ORDERED: Protamine Sulfate 50 MG/5 ML VIAL IVP ONE (07:17)
[2019-11-06] MEDS ORDERED: Bupivacaine-MPF 0.25% 10 ML VIAL ONE (07:17)
[2019-11-06] MEDS ORDERED: Vancomycin 1,000 MG, Sodium Chloride IRRigation 1,000 ML IR ONE (07:45)
[2019-11-06] MEDS ORDERED: CeFAZolin Syr 2,000MG/20 ML 2,000 MG/20 ML SYRINGE IVPB ONE (07:52)
[2019-11-06] MEDS ORDERED: *HR* PHENYLEPHRINE 1,000 MCG/10 ML SYRINGE IVP ONE (08:48)
[2019-11-06] MEDS ORDERED: EPHEDrine 50 MG/ML VIAL ONE (08:48)
[2019-11-06] MEDS ORDERED: *HR* Heparin 5,000 UNIT/ML VIAL ONE (08:56)
[2019-11-06] MEDS ORDERED: *HR* Rocuronium Bromide 50 MG/5 ML VIAL ONE (09:10)
[2019-11-06] MEDS ORDERED: Albuterol 2.5 MG/3 ML NEBULIZER IH ONE (11:04)
[2019-11-06] MEDS ORDERED: Albuterol 2.5 MG/3 ML NEBULIZER ONE (11:05)
[2019-11-06] MEDS ORDERED: Dextrose Gel 15 GM/37.5 ML TUBE PO PRN ×2 (11:49)
[2019-11-06] MEDS ORDERED: Naloxone 0.4 MG/ML INJ IVP PRN (11:49)
[2019-11-06] MEDS ORDERED: D5% in Water 1,000 ML IVC PRN (11:49)
[2019-11-06] MEDS ORDERED: 0.9 % Sodium Chloride 500 ML IVC SCH (11:49)
[2019-11-06] MEDS ORDERED: *HR* Dextrose 50 % in Water (Syg) 50 ML SYRINGE IVP PRN (11:49)
[2019-11-06] MEDS ORDERED: Acetaminophen 325 MG TABLET PO PRN (11:49)
[2019-11-06] MEDS ORDERED: Ondansetron 4 MG/2 ML VIAL IVP PRN (11:49)
[2019-11-06] MEDS: *HR* Metoprolol 5 MG/5 ML VIAL IVP SCH ×3 (13:04→23:36)
[2019-11-06] MEDS: Insulin LISPRO 300 UNITS/3 ML VIAL SQ SCH ×2 (13:05→17:45)
[2019-11-06] MEDS: ceFAZolin 2,000 MG in 0.9 % Sodium Chloride 100 ML IVPB SCH ×2 (15:13→23:37)
[2019-11-06] MEDS ORDERED: Aspirin Enteric Coated 81 MG Tablet PO SCH (21:00)
[2019-11-06] MEDS ORDERED: Insulin LISPRO 300 UNITS/3 ML VIAL SQ SCH (21:00)
[2019-11-06] MEDS: tiZANidine 4 MG TABLET PO SCH (21:25)
[2019-11-06] MEDS: FLUoxetine 20 MG CAPSULE PO SCH (21:25)
[2019-11-07] MEDS ORDERED: *HR* Heparin 5,000 UNIT/ML VIAL SQ SCH ×2 (06:00)
[2019-11-07] MEDS: *HR* Metoprolol 5 MG/5 ML VIAL IVP SCH (06:00)
[2019-11-07] MEDS ORDERED: *HR* OxyCODONE Immed Rel 5 MG TABLET PO PRN (07:17)
[2019-11-07 07:27] VITALS: BP 152/76
[2019-11-07] MEDS: Insulin LISPRO 300 UNITS/3 ML VIAL SQ SCH (08:15)
[2019-11-07] MEDS: FLUoxetine 20 MG CAPSULE PO SCH (08:17)
[2019-11-07] MEDS: tiZANidine 4 MG TABLET PO SCH (08:21)
[2019-11-07] MEDS ORDERED: NIFEdipine XL (24 HR) 30 MG TAB.ER.24 PO SCH (09:00)
[2019-11-07] MEDS ORDERED: Cholecalciferol (D-3) 1,000 UNIT (25MCG) TABLET PO SCH (09:00)
[2019-11-07] MEDS ORDERED: Furosemide 20 MG TABLET PO SCH (09:00)
[2019-11-07] MEDS ORDERED: Magnesium Oxide 400 MG TABLET PO SCH (09:00)
[2019-11-07] MEDS ORDERED: Bisoprolol/HCTZ 10/6.25 TABLET PO SCH (09:00)
[2019-11-07] MEDS ORDERED: Mirtazapine 15 MG TABLET PO SCH (09:00)
== END 2019-11-07 11:29 | disposition home or self-care (01) | DRG 38 ==
LOC: SAMDAY 06:22 → 2NNU 07:46
PROVIDERS: ADMIT Surgery; ATTEND Surgery

== ENCOUNTER 2019-11-24 11:49 | Inpatient (IN) ==
[2019-11-24] MEDS ORDERED: Naloxone 0.4 MG/ML INJ IVP PRN (15:05)
[2019-11-24] MEDS ORDERED: *HR* Metoprolol 5 MG/5 ML VIAL IVP PRN (15:12)
[2019-11-24] MEDS ORDERED: *HR* Dextrose 50 % in Water (Syg) 50 ML SYRINGE IVP PRN (15:15)
[2019-11-24] MEDS ORDERED: D5% in Water 1,000 ML IVC PRN (15:15)
[2019-11-24] MEDS ORDERED: Dextrose Gel 15 GM/37.5 ML TUBE PO PRN ×2 (15:15)
[2019-11-24] MEDS: Insulin LISPRO 300 UNITS/3 ML VIAL SQ SCH (17:03)
[2019-11-24] MEDS: allopurinoL 100 MG TABLET PO SCH (20:57)
[2019-11-24] MEDS: tiZANidine 4 MG TABLET PO SCH (20:57)
[2019-11-24] MEDS: FLUoxetine 20 MG CAPSULE PO SCH (20:57)
[2019-11-24] MEDS: Insulin DETEMIR 100 UNIT/ML X5UNITS SQ SCH (20:57)
[2019-11-24] MEDS: Levalbuterol Neb 0.63 MG/3 ML IH SCH (22:55)
[2019-11-25] MEDS: Insulin LISPRO 300 UNITS/3 ML VIAL SQ SCH ×4 (00:11→17:28)
[2019-11-25 03:08] LABS: Bilirubin,Urine Negative (Negative); Blood,Urine Negative (Negative); Clarity,Urine Cloudy (Clear); Color,Urine Yellow (Yellow); Glucose,Urine (UA) Normal (Normal); Ketones,Urine Negative (Negative); Leukocyte Esterase,Urine Moderate (Negative); Nitrite,Urine Negative (Negative); PH,Urine 5.5 pH Units (5.0-8.0); Protein,Urine 100 mg/dL (Neg-Trace); Specific Gravity,Urine 1.018 (1.010-1.025); Urobilinogen,Urine Normal (Normal)
[2019-11-25 03:09] LABS: Bacteria,Urine None Seen per hpf (None-Few); Hyaline Casts,Urine None Seen per lpf (None-Few); Squamous Epithelial Cell,Urine Many per lpf (None-Few); WBC,Urine 15-30 per hpf (0-3)
[2019-11-25] MEDS: Levalbuterol Neb 0.63 MG/3 ML IH SCH ×4 (04:13→21:35)
[2019-11-25 06:25] LABS: Basophils % 0.2 %; Immature Granulocytes % 1.4 % (0-4)
[2019-11-25 06:27] LABS: Hematocrit 33.7 % (35.3-44.9); Hemoglobin 10.3 g/dL (11.5-15.4); Lymphocytes # 0.4 K/mcL (0.6-4.6); Lymphocytes % 3.8 %; Mean Corpuscular HGB Conc 30.6 g/dL (31.6-35.5); Mean Corpuscular Hemoglobin 31.9 pg (28.0-33.3); Mean Corpuscular Volume 104.3 fL (83.0-100.0); Monocytes # 0.4 K/mcL (0.0-1.3); Monocytes % 3.5 %; Neutrophils # 9.3 K/mcL (1.6-8.9); Nucleated Red Blood Cells 0.2 /100 WBC (0); Platelet Count 136 K/mcL (140-400); Red Blood Count 3.23 M/mcL (3.82-4.97); Red Cell Distribution Width 17.5 % (11.5-14.5); Segmented Neutrophils % 91.1 %; White Blood Count 10.2 K/mcL (4.3-11.1)
[2019-11-25 06:32] LABS: Calcium 6.8 mg/dL (8.6-10.3); Magnesium 2.3 mg/dL (1.6-2.6); Phosphorous 6.9 mg/dL (2.7-4.5); Potassium 4.5 mEq/L (3.5-5.1)
[2019-11-25 06:33] LABS: INR 1.4; Prothrombin Time 15.4 Seconds (9.4-12.1)
[2019-11-25 06:35] LABS: Activated Partial Thrombo Time 28.2 Seconds (26.0-36.0)
[2019-11-25] MEDS ORDERED: Albumin Human 5% 12.5 GM/250 ML IV.SOLN IVPB ONE (07:21)
[2019-11-25] MEDS: FLUoxetine 20 MG CAPSULE PO SCH ×2 (08:43→20:13)
[2019-11-25] MEDS: tiZANidine 4 MG TABLET PO SCH ×2 (08:43→20:12)
[2019-11-25] MEDS: Magnesium Oxide 400 MG TABLET PO SCH (08:43)
[2019-11-25] MEDS: Mirtazapine 15 MG TABLET PO SCH (08:43)
[2019-11-25 08:51] LABS: Albumin 3.5 g/dL (3.5-5.7)
[2019-11-25] MEDS ORDERED: Cholecalciferol (D-3) 1,000 UNIT (25MCG) TABLET PO SCH (09:00)
[2019-11-25] MEDS ORDERED: Albumin 25% 12.5gm/50mL 12.5 GM/50 ML IV.SOLN IVPB ONE (12:28)
[2019-11-25 14:48] LABS: Amylase,Peritoneal Fluid < 10 Units/L (No Ref Range); Glucose,Peritoneal Fluid 111 mg/dL (No Ref Range); LDH,Peritoneal Fluid 172 Units/L (No Ref Range); Total Protein,Peritoneal Fluid 3.3 g/dL
[2019-11-25] MEDS: MethylPREDNISolone 40 MG/ML VIAL IVP SCH ×2 (15:07→17:29)
[2019-11-25 15:37] LABS: RBC,Peritoneal Fluid < 0.002 M/mcL
[2019-11-25 15:45] LABS: Appearance of Peritoneal Fl CLEAR (Clear)
[2019-11-25 16:31] LABS: Basophils,Peritoneal Fluid 0 %; Eosinophils,Peritoneal Fluid 0 %
[2019-11-25] MEDS ORDERED: Calcium Gluconate 1gm/50mL 1 GM/50 ML BAG IVPB ONE (16:35)
[2019-11-25] MEDS: Albumin 25% 25gram/100mL 25 GM/100 ML IV.SOLN IVPB SCH ×2 (17:27→23:40)
[2019-11-25] MEDS: Calcium Acetate 667 MG CAPSULE PO SCH (17:29)
[2019-11-25] MEDS: allopurinoL 100 MG TABLET PO SCH (20:12)
[2019-11-25] MEDS: Insulin DETEMIR 100 UNIT/ML X5UNITS SQ SCH (20:13)
[2019-11-25] MEDS ORDERED: Insulin LISPRO 300 UNITS/3 ML VIAL SQ SCH (21:00)
[2019-11-25 22:50] LABS: Protein/Creatinine Ratio,Urine 1.06 mg/mg (0.00-0.20); Sodium, Urine 34.7 mEq/L
[2019-11-26] MEDS: Levalbuterol Neb 0.63 MG/3 ML IH SCH ×4 (04:22→21:45)
[2019-11-26] MEDS: MethylPREDNISolone 40 MG/ML VIAL IVP SCH (05:10)
[2019-11-26 06:16] LABS: VBG Ionized Calcium 0.89 mmol/L (1.15-1.35)
[2019-11-26 06:40] LABS: Albumin 3.8 g/dL (3.5-5.7); Calcium 6.9 mg/dL (8.6-10.3); Phosphorous 6.2 mg/dL (2.7-4.5); Potassium 4.6 mEq/L (3.5-5.1)
[2019-11-26] MEDS: Insulin LISPRO 300 UNITS/3 ML VIAL SQ SCH ×3 (09:15→17:22)
[2019-11-26] MEDS: Magnesium Oxide 400 MG TABLET PO SCH ×2 (09:19→21:54)
[2019-11-26] MEDS: Calcium Acetate 667 MG CAPSULE PO SCH ×3 (09:19→17:23)
[2019-11-26] MEDS: calcitrioL 0.25 MCG CAPSULE PO SCH (09:19)
[2019-11-26] MEDS: FLUoxetine 20 MG CAPSULE PO SCH ×2 (09:19→21:53)
[2019-11-26] MEDS: tiZANidine 4 MG TABLET PO SCH ×2 (09:19→21:53)
[2019-11-26] MEDS: Albumin 25% 25gram/100mL 25 GM/100 ML IV.SOLN IVPB SCH ×3 (09:20→22:06)
[2019-11-26] MEDS: Mirtazapine 15 MG TABLET PO SCH (09:20)
[2019-11-26] MEDS ORDERED: Calcium Gluconate 1gm/50mL 1 GM/50 ML BAG IVPB ONE (14:18)
[2019-11-26] MEDS ORDERED: Dextrose Gel 15 GM/37.5 ML TUBE PO PRN ×2 (15:37)
[2019-11-26] MEDS ORDERED: D5% in Water 1,000 ML IVC PRN (15:37)
[2019-11-26] MEDS ORDERED: *HR* Dextrose 50 % in Water (Syg) 50 ML SYRINGE IVP PRN (15:37)
[2019-11-26] MEDS: *HR* Rivaroxaban 15 MG TABLET PO SCH (17:23)
[2019-11-26] MEDS ORDERED: Insulin DETEMIR 100 UNIT/ML X5UNITS SQ SCH (21:00)
[2019-11-26] MEDS: allopurinoL 100 MG TABLET PO SCH (21:53)
[2019-11-27] MEDS: *HR* OxyCODONE/APAP 5/325 TABLET PO PRN ×2 (02:46→23:28)
[2019-11-27] MEDS: Levalbuterol Neb 0.63 MG/3 ML IH SCH ×4 (03:46→21:37)
[2019-11-27 05:58] LABS: VBG Ionized Calcium 1.05 mmol/L (1.15-1.35)
[2019-11-27 06:45] LABS: Segmented Neutrophils % 83.9 %
[2019-11-27 06:47] LABS: Hematocrit 38.2 % (35.3-44.9); Hemoglobin 11.6 g/dL (11.5-15.4); Immature Granulocytes % 1.3 % (0-4); Immature Platelets 11.1 % (1.1-6.1); Mean Corpuscular HGB Conc 30.4 g/dL (31.6-35.5); Mean Corpuscular Hemoglobin 30.8 pg (28.0-33.3); Mean Corpuscular Volume 101.3 fL (83.0-100.0); Monocytes % 5.4 %; Platelet Count 164 K/mcL (140-400); Red Blood Count 3.77 M/mcL (3.82-4.97); Red Cell Distribution Width 18.1 % (11.5-14.5); White Blood Count 12.2 K/mcL (4.3-11.1)
[2019-11-27 06:48] LABS: Basophils % 0.2 %; Eosinophils % 0.2 %; Lymphocytes # 1.1 K/mcL (0.6-4.6); Monocytes # 0.7 K/mcL (0.0-1.3); Neutrophils # 10.2 K/mcL (1.6-8.9); Nucleated Red Blood Cells 0.8 /100 WBC (0)
[2019-11-27 06:54] LABS: Albumin 4.4 g/dL (3.5-5.7); Calcium 8.1 mg/dL (8.6-10.3); Magnesium 2.3 mg/dL (1.6-2.6); Phosphorous 4.4 mg/dL (2.7-4.5); Potassium 3.9 mEq/L (3.5-5.1)
[2019-11-27] MEDS: Insulin LISPRO 300 UNITS/3 ML VIAL SQ SCH ×2 (07:16→11:29)
[2019-11-27] MEDS: Albumin 25% 25gram/100mL 25 GM/100 ML IV.SOLN IVPB SCH ×3 (07:27→23:28)
[2019-11-27] MEDS: Calcium Acetate 667 MG CAPSULE PO SCH ×2 (07:28→11:45)
[2019-11-27] MEDS: NIFEdipine XL (24 HR) 30 MG TAB.ER.24 PO SCH (07:29)
[2019-11-27] MEDS: tiZANidine 4 MG TABLET PO SCH ×2 (07:29→21:01)
[2019-11-27] MEDS: predniSONE 20 MG TABLET PO SCH (07:29)
[2019-11-27] MEDS: FLUoxetine 20 MG CAPSULE PO SCH ×2 (07:29→21:02)
[2019-11-27] MEDS: Magnesium Oxide 400 MG TABLET PO SCH ×2 (07:30→21:00)
[2019-11-27] MEDS: Mirtazapine 15 MG TABLET PO SCH (07:30)
[2019-11-27] MEDS: calcitrioL 0.25 MCG CAPSULE PO SCH (07:30)
[2019-11-27 07:47] LABS: Anisocytosis 1+ (Not Present); Platelet Estimate Normal (Normal)
[2019-11-27 07:48] LABS: Macrocytosis Present (Not Present)
[2019-11-27 09:34] LABS: Estimated Average Glucose 134 mg/dl
[2019-11-27] MEDS: Spironolactone 25 MG TABLET PO SCH (11:45)
[2019-11-27] MEDS ORDERED: Furosemide 40 MG/4 ML VIAL IVP ONE (12:36)
[2019-11-27] MEDS ORDERED: Furosemide 40 MG/4 ML VIAL ONE (12:37)
[2019-11-27] MEDS ORDERED: levoFLOXacin 500 MG/100 ML 500 MG/100 ML BAG IVPB SCH (13:00)
[2019-11-27 15:33] LABS: Adenovirus Not Detected (Not Detect); Coronavirus 229E Not Detected (Not Detect); Coronavirus HKU1 Not Detected (Not Detect); Coronavirus NL63 Not Detected (Not Detect); Coronavirus OC43 Not Detected (Not Detect); Human Metapneumovirus Not Detected (Not Detect); Human Rhinovirus/Enterovirus Not Detected (Not Detect); Influenza A Subtype 2009 H1 Not Detected (Not Detect); Influenza B Not Detected (Not Detect); Parainfluenza Virus 1 Not Detected (Not Detect); Parainfluenza Virus 2 Not Detected (Not Detect); Parainfluenza Virus 3 Not Detected (Not Detect); Parainfluenza Virus 4 Not Detected (Not Detect); Respiratory Syncytial Virus DETECTED (Not Detect)
[2019-11-27 15:34] LABS: Bordetella Pertussis Not Detected (Not Detect); Chlamydophila pneumoniae Not Detected (Not Detect); Mycoplasma pneumoniae Not Detected (Not Detect)
[2019-11-27] MEDS: *HR* Rivaroxaban 15 MG TABLET PO SCH (16:18)
[2019-11-27] MEDS ORDERED: Insulin DETEMIR 100 UNIT/ML X5UNITS SQ SCH (21:00)
[2019-11-27] MEDS: allopurinoL 100 MG TABLET PO SCH (21:00)
[2019-11-28] MEDS: Levalbuterol Neb 0.63 MG/3 ML IH SCH ×4 (03:57→21:50)
[2019-11-28 06:00] LABS: Monocytes % 5.1 %
[2019-11-28 06:02] LABS: Hematocrit 27.3 % (35.3-44.9); Hemoglobin 8.3 g/dL (11.5-15.4); Immature Granulocytes % 1.3 % (0-4); Immature Platelets 10.3 % (1.1-6.1); Lymphocytes # 0.3 K/mcL (0.6-4.6); Lymphocytes % 6.9 %; Mean Corpuscular HGB Conc 30.4 g/dL (31.6-35.5); Mean Corpuscular Hemoglobin 31.1 pg (28.0-33.3); Mean Corpuscular Volume 102.2 fL (83.0-100.0); Monocytes # 0.2 K/mcL (0.0-1.3); Neutrophils # 4.1 K/mcL (1.6-8.9); Nucleated Red Blood Cells 0.4 /100 WBC (0); Red Blood Count 2.67 M/mcL (3.82-4.97); Red Cell Distribution Width 17.4 % (11.5-14.5); Segmented Neutrophils % 86.7 %; White Blood Count 4.7 K/mcL (4.3-11.1)
[2019-11-28 06:08] LABS: Platelet Count 84 K/mcL (140-400)
[2019-11-28 06:09] LABS: Platelet Estimate Decreased (Normal)
[2019-11-28] MEDS: Albumin 25% 25gram/100mL 25 GM/100 ML IV.SOLN IVPB SCH ×2 (09:14→17:29)
[2019-11-28] MEDS: Magnesium Oxide 400 MG TABLET PO SCH ×2 (09:16→20:39)
[2019-11-28] MEDS: predniSONE 20 MG TABLET PO SCH (09:17)
[2019-11-28] MEDS: NIFEdipine XL (24 HR) 30 MG TAB.ER.24 PO SCH (09:17)
[2019-11-28] MEDS: calcitrioL 0.25 MCG CAPSULE PO SCH (09:17)
[2019-11-28] MEDS: Mirtazapine 15 MG TABLET PO SCH (09:17)
[2019-11-28] MEDS: tiZANidine 4 MG TABLET PO SCH (09:17)
[2019-11-28] MEDS: FLUoxetine 20 MG CAPSULE PO SCH ×2 (09:18→20:39)
[2019-11-28] MEDS: Spironolactone 25 MG TABLET PO SCH (12:02)
[2019-11-28] MEDS ORDERED: *HR* LORazepam 2 MG/ML VIAL IVP PRN (12:49)
[2019-11-28] MEDS ORDERED: Furosemide 40 MG/4 ML VIAL IVP SCH (13:00)
[2019-11-28] MEDS ORDERED: levoFLOXacin 750 MG/150 ML 750 MG/150 ML BAG IVPB SCH (14:00)
[2019-11-28] MEDS: Insulin LISPRO 300 UNITS/3 ML VIAL SQ SCH ×2 (15:04→17:40)
[2019-11-28] MEDS: *HR* Rivaroxaban 15 MG TABLET PO SCH ×2 (17:29→18:01)
[2019-11-28] MEDS ORDERED: Insulin LISPRO 300 UNITS/3 ML VIAL SQ ONE (17:42)
[2019-11-28 19:35] LABS: ABG Base Excess -1 mEq/L (-2 to 3); ABG HCO3 23 mEq/L (21-27); ABG Oxygen Saturation 100 % (95-98); ABG PCO2 35 mmHg (35-45); ABG PH 7.43 pH Units (7.32-7.45); ABG PO2 293 mmHg (85-104); ABG TCO2 25 mEq/L (20-26); Blood Gas Modality BiLevel
[2019-11-28] MEDS: allopurinoL 100 MG TABLET PO SCH (20:40)
[2019-11-28] MEDS: Insulin DETEMIR 100 UNIT/ML X5UNITS SQ SCH (20:40)
[2019-11-28] MEDS: Budesonide Neb 0.5 MG/2 ML IH SCH (21:50)
[2019-11-29] MEDS: Levalbuterol Neb 0.63 MG/3 ML IH SCH ×4 (03:21→22:33)
[2019-11-29 06:40] LABS: Hemoglobin 8.5 g/dL (11.5-15.4); Monocytes % 4.5 %
[2019-11-29 06:42] LABS: Hematocrit 28.3 % (35.3-44.9); Immature Granulocytes % 1.1 % (0-4); Immature Platelets 11.5 % (1.1-6.1); Lymphocytes # 0.4 K/mcL (0.6-4.6); Lymphocytes % 6.6 %; Mean Corpuscular Hemoglobin 30.7 pg (28.0-33.3); Mean Corpuscular Volume 102.2 fL (83.0-100.0); Monocytes # 0.2 K/mcL (0.0-1.3); Neutrophils # 4.7 K/mcL (1.6-8.9); Nucleated Red Blood Cells 0.7 /100 WBC (0); Red Blood Count 2.77 M/mcL (3.82-4.97); Red Cell Distribution Width 17.5 % (11.5-14.5); Segmented Neutrophils % 87.8 %; White Blood Count 5.3 K/mcL (4.3-11.1)
[2019-11-29 06:45] LABS: Platelet Count 86 K/mcL (140-400)
[2019-11-29 06:46] LABS: Platelet Estimate Decreased (Normal)
[2019-11-29 06:59] LABS: Albumin 4.6 g/dL (3.5-5.7); Albumin/Globulin Ratio 2.9 (1.1-2.2); Bilirubin,Direct 0.2 mg/dL (0.0-0.2); Bilirubin,Indirect 0.4 mg/dL (0.0-1.0); Bilirubin,Total 0.6 mg/dL (0.3-1.0); Globulin 1.6 g/dL (2.4-3.5); Total Protein 6.2 g/dL (6.4-8.9)
[2019-11-29 07:02] LABS: Calcium 8.6 mg/dL (8.6-10.3); Magnesium 2.5 mg/dL (1.6-2.6); Potassium 4.6 mEq/L (3.5-5.1)
[2019-11-29] MEDS: Budesonide Neb 0.5 MG/2 ML IH SCH ×2 (10:08→22:33)
[2019-11-29] MEDS: *HR* HYDROmorphone 2 MG/ML SYRINGE IVP PRN ×2 (10:26→23:55)
[2019-11-29] MEDS: Insulin LISPRO 300 UNITS/3 ML VIAL SQ SCH ×3 (10:34→17:37)
[2019-11-29] MEDS: Mirtazapine 15 MG TABLET PO SCH (10:36)
[2019-11-29] MEDS: FLUoxetine 20 MG CAPSULE PO SCH ×2 (10:36→21:05)
[2019-11-29] MEDS: Magnesium Oxide 400 MG TABLET PO SCH ×2 (10:36→21:05)
[2019-11-29] MEDS: predniSONE 20 MG TABLET PO SCH (10:36)
[2019-11-29] MEDS: calcitrioL 0.25 MCG CAPSULE PO SCH (10:37)
[2019-11-29] MEDS: Spironolactone 25 MG TABLET PO SCH (12:02)
[2019-11-29] MEDS: *HR* Rivaroxaban 15 MG TABLET PO SCH (17:36)
[2019-11-29] MEDS: Insulin DETEMIR 100 UNIT/ML X5UNITS SQ SCH (21:05)
[2019-11-29] MEDS: allopurinoL 100 MG TABLET PO SCH (21:05)
[2019-11-30] MEDS: Levalbuterol Neb 0.63 MG/3 ML IH SCH ×2 (04:04→10:39)
[2019-11-30 06:45] LABS: Basophils % 0.2 %; Hemoglobin 9.5 g/dL (11.5-15.4)
[2019-11-30 06:47] LABS: Eosinophils % 0.2 %; Immature Granulocytes % 1.4 % (0-4); Immature Platelets 11.2 % (1.1-6.1); Lymphocytes # 0.4 K/mcL (0.6-4.6); Lymphocytes % 6.5 %; Mean Corpuscular HGB Conc 30.6 g/dL (31.6-35.5); Mean Corpuscular Volume 104.4 fL (83.0-100.0); Monocytes # 0.4 K/mcL (0.0-1.3); Monocytes % 6.3 %; Nucleated Red Blood Cells 0.6 /100 WBC (0); Red Blood Count 2.97 M/mcL (3.82-4.97); Segmented Neutrophils % 85.4 %; White Blood Count 6.6 K/mcL (4.3-11.1)
[2019-11-30 06:53] LABS: Neutrophils # 5.6 K/mcL (1.6-8.9); Platelet Count 99 K/mcL (140-400)
[2019-11-30 07:03] LABS: Calcium 8.9 mg/dL (8.6-10.3); Magnesium 2.6 mg/dL (1.6-2.6); Potassium 4.4 mEq/L (3.5-5.1)
[2019-11-30 07:14] LABS: Ovalocytes 2+ (Not Present); Platelet Estimate Decreased (Normal); Tear Drop Cells 3+ (Not Present)
[2019-11-30] MEDS: Insulin LISPRO 300 UNITS/3 ML VIAL SQ SCH ×2 (07:50→12:17)
[2019-11-30] MEDS: predniSONE 20 MG TABLET PO SCH (08:55)
[2019-11-30] MEDS: *HR* HYDROmorphone 2 MG/ML SYRINGE IVP PRN (08:56)
[2019-11-30] MEDS: FLUoxetine 20 MG CAPSULE PO SCH (09:03)
[2019-11-30] MEDS: Magnesium Oxide 400 MG TABLET PO SCH (09:03)
[2019-11-30] MEDS: Mirtazapine 15 MG TABLET PO SCH (09:04)
[2019-11-30] MEDS: calcitrioL 0.25 MCG CAPSULE PO SCH (09:05)
[2019-11-30] MEDS ORDERED: Morphine Sulfate Oral CONC 10 MG/0.5 ML ORAL.SYG SL PRN (10:21)
[2019-11-30] MEDS ORDERED: *HR* LORazepam Oral Conc 2 MG/ML SL PRN (10:22)
[2019-11-30] MEDS: Budesonide Neb 0.5 MG/2 ML IH SCH (10:39)
[2019-11-30 11:28] VITALS: BP 118/69
[2019-11-30] MEDS: Spironolactone 25 MG TABLET PO SCH (12:11)
== END 2019-11-30 12:45 | disposition hospice, home (50) | DRG 441 ==
LOC: 2ANU → SUATTDRO 14:35
PROVIDERS: ADMIT Internal Medicine; ATTEND Pharmacist